=== PATIENT | male | born 1990 | race Caucasian/White ===

== ENCOUNTER 2017-08-12 20:33 | Emergency (ER) | payer SELFPAY ==
[~2017-08-12] VITALS: Ht 167.6 cm; Wt 65.8 kg
[2017-08-12 20:45] VITALS: BP 132/75
[2017-08-12 21:08] VITALS: BP 132/75
[2017-08-12] MEDS ORDERED: Lidocaine 1% MPF 10mg/ml 5ml INJ ONE (21:15)
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
== END 2017-08-12 21:08 | disposition left against medical advice (07) ==
LOC: EDBD 20:33 → EMR 20:53
DX: S01.112A Laceration without foreign body of left eyelid and periocular area, initial encounter (principal); Y04.2XXA Assault by strike against or bumped into by another person, initial encounter; Y92.9 Unspecified place or not applicable
CPT/HCPCS: 99283